=== PATIENT | male | born 2000 | race Caucasian/White ===

== ENCOUNTER 2021-08-09 11:27 | Emergency (ER) | payer BC, SELFPAY ==
[2021-08-09 11:29] VITALS: BP 109/66; PULSE 146; RESP 16; TEMP 37.2; O2SAT 99; BMI 31.0
--- NOTE | 2021-08-09 12:45 | CT_ITS ---
STUDY: CT SOFT TISSUE NECK WITH CONTRAST REASON FOR EXAM: Male, 21 years old. 3 day history of sore throat. Tonsillar swelling. RADIATION DOSAGE (If Supplied By Facility): CTDIvol = ( 17.33 ) mGy, DLP = ( 515.12 ) mGycm TECHNIQUE: The patient was scanned in a multi-detector CT scanner. High resolution transaxial imaging was performed following intravenous administration of IV 100mL Isovue-300. Sagittal and coronal images were reconstructed. Individualized dose optimization techniques were used for this CT. COMPARISON: None. FINDINGS: Normal bilateral parotid glands. Normal bilateral runway model spaces. Normal bilateral parapharyngeal spaces. Normal bilateral carotid spaces. Normal bilateral sublingual and submandibular glands and spaces. Normal visualized nasopharynx. Normal retropharyngeal space. Normal perivertebral space. Diffuse enlargement of the palatine tonsils worse on the left side. There is no evidence of a fluid collection or abscess formation at this time. The visualized tongue, tongue base and oropharynx are normal. The visualized cervical lymph nodes (levels I-) are within normal size limits, and maintain normal morphology. There is no demonstrated solid or cystic mass lesion. There is no abnormal contrast enhancement. Normal epiglottis, bilateral vallecula and hypopharynx. The pre-epiglottic and paraglottic adipose spaces are normal. Normal visualized bilateral piriform sinuses, aryepiglottic folds, vocal cords, and arytenoid-cricoid articulations. Normal subglottic trachea. Normal bilateral lobes of the thyroid gland. Normal visualized pulmonary apices. Normal visualized paranasal sinuses. Normal visualized cervical spine. CT/Soft Tissue Neck WITH Contrast IMPRESSION: Diffuse bilateral swelling of the palatine tonsils worse on the left side. No evidence of fluid collection or abscess at this time Electronically Signed: North Wright MD at 13:35 EDT , Service support ,
[2021-08-09 13:22] LABS: Absolute Lymphocyte Count 0.98 X10^3/uL (0.83-4.51); Absolute Neutrophil Count 20.1 X10^3/uL (2.0-7.7); Basophil# 0.04 X10^3/uL; Basophil% 0.2 % (0-1); Hematocrit 45.1 % (40-54); Hemoglobin 15.3 g/dL (13.0-16.5); Lymphocyte # 0.98 X10^3/ul (0.83-4.51); Mean Corp Hgb Conc 33.9 g/dL (32-36); Mean Corpuscular Volume 82.6 fL (80-94); Mean Platelet Vol. 9.9 fl (6.2-12.0); Monocyte# 3.46 X10^3/uL; NRBC Flagged by Analyzer 0 % (0-5); Neutrophil # 20.11 X10^3/uL (2.7-7.7); Neutrophil % 81.1 % (47-70); POSITIVE DIFFERENTIAL YES; Platelet Count 221 K/mm3 (150-450); RBC Distribution Width CV 12.5 % (11.6-14.6); RBC Distribution Width SD 37.6 fl (35.1-43.9); Red Blood Count 5.46 M/mm3 (4.6-6.2); White Blood Count 24.8 K/mm3 (4.4-11.0)
[2021-08-09 13:24] LABS: Differential Indicated SCAN CRITERIA MET
[2021-08-09] MEDS: Ketorolac 15 MG/ML Vial IV (13:36)
[2021-08-09] MEDS: 0.9% Normal Saline 1,000 ML 1000 ML IV (13:36)
[2021-08-09 13:37] VITALS: BP 155/85; PULSE 125
[2021-08-09] MEDS: Ondansetron 4 MG/2 ML Vial IV (13:37)
[2021-08-09] MEDS: dexAMETHasone 10 MG/ML Vial PO.IVFORM (13:37)
[2021-08-09 13:46] LABS: Lactic Acid 1.1 mmol/L (0.4-1.9)
[2021-08-09 13:50] LABS: Anion Gap 6 (5-15); BUN 9 mg/dL (7-18); Chloride 102 mmol/L (98-107); EST Glomerular Filtration Rate 99 mL/min (>60); Est Glom Filt Rate - Afr Amer 120 mL/min (>60); Estimated Creatinine Clearance 115.87 ml/min; Glucose 103 mg/dL (74-106); Potassium 3.7 mmol/L (3.5-5.1); Sodium Level 136 mmol/L (136-145); Troponin-I HS 5 pg/mL (3.0-78.0)
[2021-08-09 13:51] LABS: Platelet Estimate ADEQUATE (ADEQ); Red Cell Morphology NORM C+C NORMAL (NORM C&C)
--- NOTE | 2021-08-09 14:46 | EDS_ITS ---
HPI HPI - URI History of Present Illness Chief Complaint: Sore Throat Informant: patient Narrative Narrative: Patient is a 21-year-old male presenting with fever, tachycardia and sore throat. Patient was seen at [facility] where he had a negative Covid and strep test today. He states he does get frequent pharyngitis flares. 2-3 times a year. He notes he has more swelling and pain associated with this 1. Seems to be worse on the right side. He is having difficulty swallowing because of pain. He not currently on any medications. He has been taking ibuprofen with minimal relief of his symptoms. No rash. No other complaints at this time. Does have associated headache but attributes that to dehydration from poor oral intake. ROS ROS ED Constitutional Constitutional ED: Reports chills and fever(s) Eyes Eyes: Denies change in vision ENT ENT ED: Reports sore throat; Denies ear pain or rhinorrhea Cardiovascular Cardiovascular: Denies chest pain Respiratory/Chest Respiratory/Chest: Denies cough or dyspnea Gastrointestinal Gastrointestinal: Denies abdominal pain, nausea or vomiting Musculoskeletal Musculoskeletal: Denies arthralgias or myalgias Integumentary Denies rash Neurologic Neurologic: Reports headache(s); Denies weakness Psychiatric Psychiatric: Denies anxiety or depression PFSH PFSH Medical History no medical history Home Medications Advil 800 mg PO/SL PRN PRN 08/09/21 [History Last Taken Unknown] Anel 08/09/21 [History Last Taken Unknown] amoxicillin-pot clavulanate [Augmentin] 1 tab PO BID #14 tab 08/09/21 [Rx Last Taken Unknown] Allergy/AdvReac Type Severity Reaction Status Date / Time albuterol AdvReac Other Verified 08/09/21 11:48 [email or web address] [From Omnicef] AdvReac NEEDS Verified 08/09/21 11:48 FOLLOW-UP [email or web address] [From Singulair] AdvReac Other Verified 08/09/21 11:48 Social History Smoking Status: Never smoker EXAM Physical Exam Const Vital Signs: 08/09/21 11:29 08/09/21 13:37 08/09/21 15:05 Temperature 99.0 F Temperature Source Oral Pulse Rate 146 H 125 H 110 H Respiratory Rate 16 Blood Pressure 109/66 155/85 H 139/78 H Blood Pressure Mean 80 108 Pulse Ox 99 Oxygen Delivery Method Room Air Room Air Positive well nourished and well developed General Appearance ED: well developed HEENT Reports TM's clear HEENT Narrative: Significant bilateral hypertrophy of the tonsils with multiple areas of exudate and questionable necrotic appearance. Uvula is deviated towards the right slightly. normocephalic and atraumatic External Ear: external ears normal External Auditory Canal: EAC's normal Tympanic Membrane ED: Yes TM's clear Eyes PERRL and EOMs intact bilaterally Neck supple and no meningeal signs General: Negative for anterior neck swelling or lymphadenopathy Resp normal respiratory effort and clear to auscultation bilaterally Cardio no murmurs Rate: tachycardic Rhythm: regular rhythm GI non-tender and non-distended Auscultation: normoactive bowel sounds Palpation: soft Extremity normal to inspection and full ROM Neuro oriented x3 and CN's II-XII intact bilaterally Sensorium / Orientation: alert Motor Exam: strength 5/5 throughout; Negative for general weakness Psych mental status grossly normal Skin Lesions: no lesions Rashes: no rashes MDM MDM MDM Narrative Medical decision making narrative: Patient evaluated with worsening sore throat, headache and painful swallowing. Patient clinically is well-appearing be significantly tachycardic in the ER. He is afebrile but has a low-grade temperature of 99.0. Given his degree of swelling, slight uvular deviation and tachycardia I did obtain imaging as well as blood work. He has a leukocytosis with a white blood cell count of 24.8. His lactate is normal. He has a normal anion gap. No significant electrolyte abnormalities. Monospot is negative. Throat culture is pending. CT soft tissue neck obtained for concerns of deep space infection or Lemierre's. It shows no fluid collection or abscess but does show bilateral tonsillar swelling. Patient given dose of IV fluids, Decadron, Zofran and Toradol in the ER. Symptomatically is improved and his heart rate has come down. He will be discharged home on a course of Augmentin as I suspect he still has a bacterial source of his pharyngitis. Monospot is negative. Patient is counseled on signs and symptoms requiring return to the emergency room. Patient verbalizes agreement and understand this plan. Patient discharged home in stable and improved condition. Patient is given ENT for outp atient follow-up. Lab Data Attestation: I reviewed the patient's lab results. Labs: Laboratory Results - last 24 hr 08/09/21 08/09/21 08/09/21 13:05 13:05 13:05 WBC 24.8 H RBC 5.46 Hgb 15.3 Hct 45.1 MCV 82.6 MCH 28.0 MCHC 33.9 RDW Std Deviation 37.6 RDW Coeff of Mitzi 12.5 Plt Count 221 MPV 9.9 Immature Gran % (Auto) 0.700 Neut % (Auto) 81.1 H Lymph % (Auto) 4.0 L [place] % (Auto) 14.0 H Eos % (Auto) 0.0 Baso % (Auto) 0.2 Absolute Neuts (auto) 20.1 H Absolute Lymphs (auto) 0.98 Nucleated RBC % 0 Differential Comment Platelet Estimate ADEQUATE RBC Morphology NORM C+C Sodium 136 Potassium 3.7 Chloride 102 Carbon Dioxide 28.0 Anion Gap 6 BUN 9 Creatinine 1.00 Estim Creat Clear Calc 115.87 Est GFR (MDRD) Af Amer 120 Est GFR (MDRD) Non-Af 99 BUN/Creatinine Ratio 9.0 L Glucose 103 Lactic Acid 1.1 Calcium 9.0 Troponin I High Sens 5 Monoscreen 08/09/21 14:57 WBC RBC Hgb Hct MCV MCH MCHC RDW Std Deviation RDW Coeff of Mitzi Plt Count MPV Immature Gran % (Auto) Neut % (Auto) Lymph % (Auto) [place] % (Auto) Eos % (Auto) Baso % (Auto) Absolute Neuts (auto) Absolute Lymphs (auto) Nucleated RBC % Differential Comment Platelet Estimate RBC Morphology Sodium Potassium Chloride Carbon Dioxide Anion Gap BUN Creatinine Estim Creat Clear Calc Est GFR (MDRD) Af Amer Est GFR (MDRD) Non-Af BUN/Creatinine Ratio Glucose Lactic Acid Calcium Troponin I High Sens Monoscreen Negative Radiography Diagnostic Testing: Clinical Impression(s) from Imaging Studies Soft Tissue Neck CT 08/09/21 12:45 IMPRESSION: Diffuse bilateral swelling of the palatine tonsils worse on the left side. No evidence of fluid collection or abscess at this time Electronically Signed: North Wright MD at 13:35 EDT , Service support , Discharge Plan Triage Chief Complaint: Sore Throat ED Provider: Raven Herr Dx/Rx/DC Orders Clinical Impression: Pharyngitis, Leukocytosis Instructions: ED Pharyngitis, Report Pending Prescriptions: New amoxicillin-pot clavulanate [Augmentin] 875-125 mg tablet 1 tab PO BID Qty: 14 RF: 0 No Action Advil 800 mg PO/SL PRN PRN (Reason: Pain) RF: 0 Anel RF: 0 Primary Care Provider: Nick Sanchez Referrals: Mj Torres MD [STAFF PHYSICIAN] - Nick Sanchez MD [Primary Care Provider] - Activity Restrictions/Additional Instructions: Alternate Tylenol and ibuprofen for fever and discomfort. Drink lots of fluids. Disposition Discharge Date/Time: 08/09/21 15:07
[2021-08-09 15:05] VITALS: BP 139/78; PULSE 110
[2021-08-09 15:58] LABS: Internal QC Validated? YES +Cl - CLEAR BKGD; Monotest Negative (Negative)
[2021-08-11 09:36] LABS: Pathologist Review Reviewed
== END 2021-08-09 15:07 | disposition home or self-care (01) ==
PROVIDERS: Emergency Provider Emergency Medicine; PCP Family Medicine
DX: J02.9 Acute pharyngitis, unspecified (principal); D72.829 Elevated white blood cell count, unspecified
CPT/HCPCS: 70491; 80048; 83605; 84484; 85025; 86308; 87040; 87880; 96361; 96374; 96375; 99283; J7030; Q9967; A4216; J2405